=== PATIENT | male | born 1990 | race Caucasian/White ===

== ENCOUNTER → 2017-04-28 | Day surgery (SDC) | payer OTHER ==
[2017-04-08 09:52] VITALS: Ht 170.2 cm; Wt 61.4 kg
[~2017-04-28] VITALS: Ht 170.2 cm; Wt 61.4 kg
[~2017-04-28] MED LIST: ASPCH81X PO; CHOL4POW11 PO; LIDOCAINE HCL 2% 2 ML VIAL (20MG/ML) ONE; LISD20CA PO; MIDAZOLAM HCL 1 MG/ML 2ML VIAL ONE; MULT-506 PO; PHENYLEPHRINE 100MCG/ML 5ML SYR ONE; PROPOFOL IV EMULSION 10 MG/ML 20 ML VIAL IV ONE; SODIUM CHLORIDE 0.9% 500ML 500 ML IV ONE; SULF800T23 PO; TACR0.5C3 PO; TACR1CAP PO
--- NOTE | 2017-04-28 13:19 | Endo History and Physical ---
History & Physical Date of Service: Apr 28, 2017. Chief Complaint: ABNORMAL CELIAC PANEL, PERSISTENT DIARRHEA Referring Physician: DR. KRISH VICTORIA History of Present Illness 26 yo CM who presents for EGD and colonoscopy secondary to abnormal celiac panel and persistent diarrhea. Past Surgical History Hx Cardiac Surgery: No Hx Internal Defibrillator: No Hx Pacemaker: No Hx Abdominal Surgery: Yes (LIVER TRANSPLANT, MULT. ABDOMINAL SURGERIES ( ILEOSTOMY/REVERSAL)) Hx of Implantable Prosthesis: No Hx Post-Op Nausea and Vomiting: No Hx Cancer Surgery: No Hx Thoracic Surgery: No Hx Orthopedic: No Hx Urinary Tract Surgery: No Family History None Social History Smoking Status: Never Smoker Hx Substance Use: No Hx Alcohol Use: No Allergies Coded Allergies: Cephalexin (Verified Allergy, Unknown, HIVES, 04/28/17) Cephalosporins (Verified Allergy, Unknown, HIVES, 04/28/17) Penicillins (Verified Allergy, Unknown, HIVES, 04/28/17) Current Medications Reported Home Medications Medications Dose Route/Sig Max Daily Dose Days Date Category Questran (Cholestyramine) 4 Gm Pow 1 Dose PO DAILY 04/08/17 Reported Multivitamin (Multivitamins) Tab 1 Tab PO DAILY 04/08/17 Reported Prograf (Tacrolimus) 1 Mg Cap 1 Mg PO BID 04/08/17 Reported Prograf (Tacrolimus) 0.5 Mg Cap 0.5 Mg PO BID 04/08/17 Reported Bactrim Ds 800MG/160MG (Trimethoprim/Sulfamethoxazole) Tab 1 Tab PO 3XWK 04/08/17 Reported Aspirin Chewable (Aspirin) 81 Mg Chew 81 Mg PO QAM 04/08/17 Reported Vyvanse (Lisdexamfetamine Dimesylate) 20 Mg Cap 20 Mg PO QAM 04/08/17 Reported Vital Signs Weight (Kilograms): 61.36 Height (Feet): 5 Height (Inches): 7 Date Time Temp Pulse Resp B/P (MAP) Pulse Ox O2 Delivery O2 Flow Rate FiO2 04/28/17 11:53 36.5 74 18 102/60 (74) 99 Room Air Physical Exam General Appearance: WD/WN, no apparent distress Respiratory/Chest: Auscultation: breath sounds normal Cardiovascular: Heart Auscultation: RRR Abdomen: Bowel Sounds: normal Inspection & Palpation: soft, non-distended, no tenderness, guarding & rebound Assessment and Plan Assessment: 26 yo CM who presents for EGD and colonoscopy secondary to abnormal celiac panel and persistent diarrhea. Plan: Proceed with EGD and colonoscopy.
--- NOTE | 2017-04-28 14:09 | GI REPORT ---
Procedure Date: 04/28/2017 1:34 PM Procedure: Upper GI endoscopy Indications: Positive celiac serologies, Diarrhea Medicines: Monitored Anesthesia Care Complications: No immediate complications. Estimated Blood Loss: Estimated blood loss: none. Procedure: Pre-Anesthesia Assessment: - Prior to the procedure, a History and Physical was performed, and patient medications and allergies were reviewed. The patient's tolerance of previous anesthesia was also reviewed. The risks and benefits of the procedure and the sedation options and risks were discussed with the patient. All questions were answered, and informed consent was obtained. Prior Anticoagulants: The patient has taken no previous anticoagulant or antiplatelet agents. ASA Grade Assessment: II - A patient with mild systemic disease. After reviewing the risks and benefits, the patient was deemed in satisfactory condition to undergo the procedure. After obtaining informed consent, the endoscope was passed under direct vision. Throughout the procedure, the patient's blood pressure, pulse, and oxygen saturations were monitored continuously. The scope was introduced through the mouth, and advanced to the second part of duodenum. The upper GI endoscopy was accomplished without difficulty. The patient tolerated the procedure well. Findings: The esophagus was normal. The stomach was normal. The examined duodenum was normal. Biopsies for histology were taken with a cold forceps for evaluation of celiac disease. Impression: - Normal esophagus. - Normal stomach. - Normal examined duodenum. Biopsied. Recommendation: - Resume previous diet. - Continue present medications. - Await pathology results. - Return to primary care physician as previously scheduled. Sam Pryor, 04/28/2017 2:09:22 PM This report has been signed electronically. Note Initiated On: 04/28/2017 1:34 PM I attest to the content of the Intraoperative Record and orders documented therein, exceptions below
--- NOTE | 2017-04-28 14:25 | Discharge Instructions ---
Endoscopy Patient Instructions Date / Procedure(s) Performed Apr 28, 2017. Colonoscopy, EGD Allergy Information Coded Allergies: Cephalexin (Verified Allergy, Unknown, HIVES, 04/28/17) Cephalosporins (Verified Allergy, Unknown, HIVES, 04/28/17) Penicillins (Verified Allergy, Unknown, HIVES, 04/28/17) Discharge Date / Findings Apr 28, 2017. EGD: Duodenal biopsies Colonoscopy: Random colon biopsies, Stool aspirate collected Medication Instructions Stopped Medication(s): ASPIRIN LAST 04/27/17 OK to resume all medications today as prescribed Reported Home Medications Medications Dose Route/Sig Max Daily Dose Days Date Category Questran (Cholestyramine) 4 Gm Pow 1 Dose PO DAILY 04/08/17 Reported Multivitamin (Multivitamins) Tab 1 Tab PO DAILY 04/08/17 Reported Prograf (Tacrolimus) 1 Mg Cap 1 Mg PO BID 04/08/17 Reported Prograf (Tacrolimus) 0.5 Mg Cap 0.5 Mg PO BID 04/08/17 Reported Bactrim Ds 800MG/160MG (Trimethoprim/Sulfamethoxazole) Tab 1 Tab PO 3XWK 04/08/17 Reported Aspirin Chewable (Aspirin) 81 Mg Chew 81 Mg PO QAM 04/08/17 Reported Vyvanse (Lisdexamfetamine Dimesylate) 20 Mg Cap 20 Mg PO QAM 04/08/17 Reported Provider Instructions Activity Restrictions - No exercising or heavy lifting for 24 hours. - Do not drink alcohol the day of the procedure. - Do not drive a car or operate machinery until the day after the procedure. - Do not make any important decisions or sign important papers in 24 hours after the procedure. Following Day: - Return to full activity which may include returning to work/school. Diet Start your diet with liquids and light foods (jello, soup, juice, toast). Then eat your usual diet if not nauseated. Treatment For Common After Affects For mild abdominal pain, bloating, or excessive gas: - Rest - Eat lightly - Lie on right side Follow-Up Information Follow-up with DR. KRISH VICTORIA as scheduled Anesthesia Information What You Should Know You have had a procedure that required some medicine to reduce anxiety and discomfort. This treatment is called moderate sedation. After receiving the treatment, you may be sleepy, but you will be able to breathe on your own. The effects of the treatment may last for several hours. Follow these instructions along with Activity/Diet recommendations noted above: * Do NOT do anything where dizziness or clumsiness would be dangerous. * Rest quietly at home today, then you can be up and about tomorrow. * Have a responsible person stay with you the rest of today. * You may have had an I.V. today. If so, you may take the dressing off later today. Recommendations Call your doctor if: * Trouble breathing * Continuous vomiting for more than 24 hours * Temperature above 101 degrees * Severe abdominal pain or bloating * Pain not relieved by pain medicine ordered * There is increased drainage or redness from any incision * A large amount of rectal bleeding greater than 2-3 tablespoons. (If you had a polyp/s removed or have hemorrhoids, a small amount of blood - from the rectum is to be expected.) * You have any unanswered questions or concerns. IN THE EVENT OF A SERIOUS EMERGENCY, GO TO THE NEAREST EMERGENCY ROOM Your discharge instructions were prepared by provider Sam Pryor. Patient Instructions Signature Page Elliot Guzman Patient (or Guardian) Signature/Date: I have read and understand the instructions given to me by my caregivers. Caregiver/RN/Doctor Signature/Date: The above-named patient and/or guardian has received patient instructions on this date. + Original Patient Signature Page (only) stays with chart. Please make copy for patient.
--- NOTE | 2017-04-28 14:29 | GI REPORT ---
Procedure Date: 04/28/2017 2:06 PM Procedure: Colonoscopy Indications: Chronic diarrhea Medicines: Monitored Anesthesia Care Complications: No immediate complications. Estimated Blood Loss: Estimated blood loss: none. Procedure: Pre-Anesthesia Assessment: - Prior to the procedure, a History and Physical was performed, and patient medications and allergies were reviewed. The patient's tolerance of previous anesthesia was also reviewed. The risks and benefits of the procedure and the sedation options and risks were discussed with the patient. All questions were answered, and informed consent was obtained. Prior Anticoagulants: The patient has taken no previous anticoagulant or antiplatelet agents. ASA Grade Assessment: II - A patient with mild systemic disease. After reviewing the risks and benefits, the patient was deemed in satisfactory condition to undergo the procedure. After I obtained informed consent, the scope was passed under direct vision. Throughout the procedure, the patient's blood pressure, pulse, and oxygen saturations were monitored continuously. The scope was introduced through the anus and advanced to the terminal ileum. The colonoscopy was performed without difficulty. The patient tolerated the procedure well. The quality of the bowel preparation was fair. The terminal ileum, the appendiceal orifice and the rectum were photographed. Findings: The perianal and digital rectal examinations were normal. A large amount of liquid stool was found in the entire colon, interfering with visualization. The colon (entire examined portion) appeared normal. Biopsies were taken with a cold forceps for histology. Fluid aspiration for stool studies was performed. Impression: - Preparation of the colon was fair. - Stool in the entire examined colon. - The entire examined colon is normal. Biopsied. Fluid aspiration performed. Recommendation: - Resume previous diet. - Continue present medications. - Repeat colonoscopy for surveillance based on pathology results. - Return to primary care physician as previously scheduled. Sam Pryor DO 04/28/2017 2:29:05 PM This report has been signed electronically. Note Initiated On: 04/28/2017 2:06 PM I attest to the content of the Intraoperative Record and orders documented therein, exceptions below
--- NOTE | 2017-04-28 14:57 | Anesthesiology Progress Note ---
Anesthesia Post Op Note Date & Time Apr 28, 2017 at 14:56 Vital Signs Pain Intensity: 0 Vital Signs Past 12 Hours Date Time Temp Pulse Resp B/P (MAP) Pulse Ox O2 Delivery O2 Flow Rate FiO2 04/28/17 14:50 66 18 91/49 (63) 10 Room Air 04/28/17 14:34 36.2 59 18 85/41 (56) 99 Room Air 04/28/17 11:53 36.5 74 18 102/60 (74) 99 Room Air Notes Mental Status: alert / awake / arousable, participated in evaluation Pt Amnestic to Procedure: Yes Nausea / Vomiting: adequately controlled Pain: adequately controlled Airway Patency, RR, SpO2: stable & adequate BP & HR: stable & adequate Hydration State: stable & adequate Anesthetic Complications: no major complications apparent
[2017-04-28 15:11] VITALS: BP 100/58; PULSE 62; O2SAT 100
== END | disposition home or self-care (01) ==
LOC: C.GI 11:28
PROVIDERS: ATTEND Internal Medicine
DX: R19.7 Diarrhea, unspecified (principal); Z94.4 Liver transplant status; Z88.0 Allergy status to penicillin; Z88.1 Allergy status to other antibiotic agents; Z88.2 Allergy status to sulfonamides; Z79.899 Other long term (current) drug therapy; Z79.82 Long term (current) use of aspirin